=== PATIENT | female | born 1995 | race Caucasian/White ===

== ENCOUNTER 2017-05-31 00:13 | Emergency (ER) | payer BC, OTHER ==
[~2017-05-31] VITALS: Ht 180.3 cm; Wt 70.2 kg
[2017-05-31 00:16] VITALS: TEMP 36.9; Ht 180.3 cm; Wt 70.2 kg
[2017-05-31] MEDS ORDERED: PROCHLORPERAZINE 5 MG/ML 2 ML VIAL IV STA (00:25)
[2017-05-31] MEDS ORDERED: KETOROLAC TROMETHAMINE 30 MG/ML VIAL IV STA (00:25)
[2017-05-31] MEDS ORDERED: DiphenhydrAMINE HCL 50 MG/ML VIAL IV STA (00:25)
[2017-05-31] MEDS ORDERED: SODIUM CHLORIDE 0.9% 1000ML 1,000 ML IV STA (00:25)
--- NOTE | 2017-05-31 00:27 | EMERGENCY ROOM VISIT NOTE ---
History Report prepared by Sapna: Chapincito Gray Under the Supervision of: Dr. Jerson Forbes M.D. First contact with patient: 00:21 Chief Complaint: HEADACHE Stated Complaint: MIGRAINE,VOMITING History of Present Illness The patient is a 21 year old female who presents to the Emergency Room with complaints of a constant migraine beginning at 1900 today. The patient states that she has a history of migraines and has had to come to the emergency room once before for migraine symptoms. She notes that her migraine is on one side and is accompanied by vomiting and vision loss. She denies any falls and trauma. She reports that she typically takes a migraine preventative, but did not take it tonight. The patient states that she took 2 Excedrin tonight with no relief of her symptoms. Source of History: patient Onset: 1899 today Position: head Quality: other (migraine) Timing: constant Associated Symptoms: + vomiting Note: She also complains of vision loss. She denies any fall/trauma. Review of Systems See HPI for pertinent positives & negatives. A total of 10 systems reviewed and were otherwise negative. Past Medical & Surgical Medical Problems: (1) Migraine Family History No pertinent family history stated. Social History Smoking Status: Never Smoker Drug Use: none Marital Status: single Housing Status: lives with family Occupation Status: student Current/Historical Medications Scheduled Amitriptyline Hcl (Elavil), Unknown Dose PO DAILY Control Pills ( Control Pills), 1 TAB PO DAILY Scheduled PRN Kwktxiu-Uvdaavivalnpv-Qbwidtsp (Excedrin Extra Strength), 1 TAB PO DIRECTED PRN for Headache Allergies Coded Allergies: No Known Allergies (Unverified , 05/31/17) Physical Exam Vital Signs Date Time Temp Pulse Resp B/P (MAP) Pulse Ox O2 Delivery O2 Flow Rate FiO2 05/31/17 03:01 94/51 05/31/17 02:48 91 97 05/31/17 02:33 95 98 05/31/17 02:28 94 24 97 Room Air 05/31/17 02:13 95 99 05/31/17 02:01 118/66 05/31/17 01:58 89 100 05/31/17 01:56 90 16 102/66 100 Room Air 05/31/17 01:43 86 100 05/31/17 01:31 111/66 05/31/17 01:28 85 99 05/31/17 01:23 90 100 Room Air 05/31/17 01:13 84 18 100 05/31/17 01:03 85 100 05/31/17 01:01 124/69 05/31/17 00:59 124/69 05/31/17 00:16 36.9 58 18 136/87 97 Room Air Physical Exam GENERAL: Patient is well appearing and in mild distress. Vomiting. HEAD: No acute trauma, normocephalic atraumatic ENT: Mucous membranes moist, no nasal congestion. EYES: Equal/Reactive Bilaterally, No scleral icterus, Normal ROM NECK: No nuchal rigidity, no meningismus, trachea is midline, full ROM LUNGS: No dyspnea. Clear to auscultation and equal bilaterally. No wheeze, no rhonchi. HEART: Regular rate and rhythm. No murmurs, rubs, gallops appreciated. ABDOMEN: Soft, nontender, bowel sounds positive, no masses appreciated, no peritonitis. BACK: No midline tenderness, no CVA tenderness EXTREMITIES: Normal motion all extremities, no cyanosis, no edema. NEUROLOGIC: Awake, Alert, Oriented, no acute motor or sensory deficits, no focal weakness, cranial nerves grossly intact. SKIN: No rash, no jaundice, no diaphoresis. Medical Decision & Procedures ER Provider Diagnostic Interpretation: Per [facility]: CT HEAD: No prior No acute intracranial findings. Suspected prominent perivascular space on the right. Mucosal retention cyst or polyp in the right sphenoid sinus. Radiologist: Macario Birmingham M.D. Medications Administered Medications (Trade) Dose Ordered Sig/Jaqueline Route Start Time Stop Time Status Last Admin Dose Admin Sodium Chloride 1,000 ml @ 999 mls/hr Q1H1M STAT IV 05/31/17 00:25 05/31/17 01:25 DC 05/31/17 00:44 999 MLS/HR Diphenhydramine HCl (Benadryl Inj) 50 mg NOW STAT IV 05/31/17 00:25 05/31/17 00:26 DC 05/31/17 00:47 50 MG Prochlorperazine Edisylate (Compazine Inj) 5 mg NOW STAT IV 05/31/17 00:25 05/31/17 00:26 DC 05/31/17 00:51 5 MG Ketorolac Tromethamine (Toradol Inj) 30 mg NOW STAT IV 05/31/17 00:25 05/31/17 00:26 DC 05/31/17 00:45 30 MG Morphine Sulfate (MoRPHine SULFATE INJ) 4 mg NOW STAT IV 05/31/17 01:33 05/31/17 01:35 DC 05/31/17 02:02 4 MG Dexamethasone Sodium Phosphate (Dexamethasone Inj Pf) 10 mg NOW ONCE IV 05/31/17 01:45 05/31/17 01:46 DC 05/31/17 02:02 10 MG Magnesium Sulfate (Magnesium Sulfate) 1 gm NOW STAT IV 05/31/17 01:33 05/31/17 01:35 DC 05/31/17 02:04 1 GM ED Course 0030: The patient was evaluated in room B4. A complete history and physical exam was performed. 0130: I reevaluated and updated the patient. She says that her headache is still bothering her but is now a 6/10. She notes that her migraines usually do not last this long. I discussed imaging of the brain with CT which she is agreeable to. 0217: I rechecked the patient. Her headache is much better. 0241: I reevaluated and updated the patient. She is doing much better. She and her mother both feel comfortable going home. They will plan on following up with neurology and will discuss MRI with her PCP due to the patient's CT findings. 0258: Reevaluated the patient. Discussed results and discharge instructions: she and her mother verbalized understanding and agreement. The patient is ready for discharge. Medical Decision Differential: Headache, Migraine, Cluster Headache, Seizure, Meningitis, Sinusitis, CO exposure, ICH/SAH, Infectious, Tumor, Sinus Thrombosis, Arterial Dissection, amongst other pathologies entertained. 21 yr old female with rapidly worsening migraine over the last 5 hours. Associated aura similar to previous migraines. No trauma/injuries. No fevers, neck stiffness, rash, ams, nor other symptoms concerning for meningitis. She was given initial meds, with about half improvement thus second round meds given and while they were setting in I opted to do CT to rule out bleed given worse than her normal. As recent onset I feel this adequately rules out SAH without having to do LP/MRI. As CT result returned patient notes feeling much improved. I discussed Morphine and need to avoid it except in certain situations which patient/mother understand. I feel thrombosis is unlikely, especially given headache improving, similar to previous migraines and patient now feeling well. Heavily stressed rest, keeping well hydrated. Reviewed symptoms requiring RTED. Advised PCP follow up to discuss Neuro eval and possible MRI in future given CT findings, though mother does not that MRI has previously been done which she will discuss with PCP. Medication Reconcilliation Current Medication List: was personally reviewed by me Blood Pressure Screening Patient's blood pressure: Normal blood pressure Blood pressure disposition: Did not require urgent referral Impression Primary Impression: Migraine Scribe Attestation The scribe's documentation has been prepared under my direction and personally reviewed by me in its entirety. I confirm that the note above accurately reflects all work, treatment, procedures, and medical decision making performed by me. Departure Information Dispostion Home / Self-Care Referrals Kandy Black (PCP) Forms HOME CARE DOCUMENTATION FORM, IMPORTANT VISIT INFORMATION Patient Instructions ED Headache Migraine, My [facility] Additional Instructions Please follow up with your primary care provider for further evaluation. You should discuss having a neurologist evaluation, or possibly an MRI of your brain. Problem Qualifiers Primary Impression: Migraine
[2017-05-31] MEDS ORDERED: MoRPHine SULFATE 4 MG/ML 1 ML CARP\\VIAL IV STA (01:33)
[2017-05-31] MEDS ORDERED: MAGNESIUM SULFATE 1GM / D5W 1 GM BAG IV STA (01:33)
[2017-05-31] MEDS ORDERED: AMT50 PO (01:37)
[2017-05-31] MEDS ORDERED: BCPILLS PO (01:37)
[2017-05-31] MEDS ORDERED: ASPI-391 PO (01:39)
[2017-05-31] MEDS ORDERED: DEXAMETHASONE **PF** INJ 10 MG/ML VIAL IV ONE (01:45)
[2017-05-31 02:48] VITALS: PULSE 91; O2SAT 97
[2017-05-31 03:01] VITALS: BP 94/51
--- NOTE | 2017-05-31 07:08 | DIAGNOSTIC IMAGING REPORT ---
CT SCAN OF THE BRAIN WITHOUT IV CONTRAST CLINICAL HISTORY: Headache. COMPARISON STUDY: No priors. TECHNIQUE: Unenhanced axial CT scan of the brain is performed from the vertex to the skull base. A dose lowering technique was utilized adhering to the principles of ALARA. CT DOSE: 614.27 mGy.cm FINDINGS: Brain parenchyma: The brain parenchyma is normal in appearance. There is no hemorrhage, mass effect, or evidence of acute territorial ischemia by CT criteria. Asif-white matter is preserved. No extra-axial fluid collection is seen. Ventricles, sulci, cisterns: Normal in configuration. Intracranial vasculature: The visualized intracranial vasculature at the skull base is normal in appearance. Calvarium: Unremarkable. Sinuses and mastoids: A retention cyst is noted in the right sphenoid sinus. The remaining visualized paranasal sinuses are clear. The mastoid air cells are well pneumatized. Orbits: The bony orbits are grossly intact. IMPRESSION: No acute intracranial abnormality. Electronically signed by: Remington Kim M.D. 05/31/2017 7:07 AM Dictated Date/Time: 05/31/2017 7:06 AM
== END 2017-05-31 03:02 | disposition home or self-care (01) ==
LOC: C.EDB 00:15
DX: G43.909 Migraine, unspecified, not intractable, without status migrainosus (principal)